=== PATIENT | male | born 1960 | race Caucasian/White ===

== ENCOUNTER 2020-05-19 06:24 | Observation (INO) | payer OTHER ==
[2020-05-19] VITALS (10 sets, daily range): BP systolic 116–147; BP diastolic 69–88
[~2020-05-19] VITALS: Ht 188 cm; Wt 107.0 kg
[2020-05-19] MEDS ORDERED: COREG25 MG PO (07:42)
[2020-05-19 07:43] LABS: HEMOGLOBIN 12.6 gm/dL (14.0-18.0); MCH 26.7 pg (26.0-34.0); MCHC 33.1 g/dL (28.0-37.0); MCV 80.5 fL (80.0-100.0); RBC 4.72 mil/uL (4.50-6.00); RDW 14.8 % (10.5-14.5)
[2020-05-19] MEDS ORDERED: CARVEDILOL25 MG PO (07:43)
[2020-05-19] MEDS ORDERED: HYDROCHLOROTHIA25 M1 PO (07:43)
[2020-05-19] MEDS ORDERED: ELIQUIS5 MG PO (07:43)
[2020-05-19] MEDS ORDERED: LEVOTHYROXINE25 MC1 PO (07:44)
[2020-05-19] MEDS ORDERED: METFORMIN HCL500 M3 PO (07:46)
[2020-05-19] MEDS ORDERED: COZAAR 25 MG TA25 M2 PO (07:46)
[2020-05-19 07:47] LABS: CREATININE 1.5 mg/dL (0.7-1.3); POTASSIUM 3.5 mmol/L (3.5-5.1)
[2020-05-19] MEDS ORDERED: NYSTATIN-TRIAMC15 GM TOP (07:47)
[2020-05-19] MEDS ORDERED: PACERONE200 MG PO (07:47)
[2020-05-19] MEDS ORDERED: SILDENAFIL20 MG PO (07:48)
[2020-05-19] MEDS ORDERED: CRESTOR40 MG PO (07:48)
[2020-05-19] MEDS ORDERED: CLONAZEPAM 0.50.5 M1 PO (07:49)
[2020-05-19] MEDS ORDERED: ASA81BEC PO (07:49)
--- NOTE | 2020-05-19 13:09 | NUR ---
PT RECEIVED FROM [employer] OPPORTUNITY OFFICER, PTS VSS. PTS RIGHT GROIN SITE CLEAN DRY AND INTACT WITH NO HEMATOMA PRESENT. ADMISSION ASSESSMENT PERFORMED CHARTED. WILL CONTINUE TO MONITOR AND FOLLOW POC.
--- NOTE | 2020-05-19 16:30 | NUR ---
PT RESTING WITH AT BEDSIDE. PT VOICES NO CONCERNS AT THIS TIME. VSS. WILL CONTINUE TO MONITOR AND FOLLOW POC. PTS GROIN SITE LOOKS CLEAN DRY AND INTACT.
--- NOTE | 2020-05-19 18:00 | CATHLAB ---
[facility] [place] [address] INVASIVE PROCEDURE REPORT Name: JOSE ANTONIO CHEN Room #: 212-P ADM Gena Foster#: [id number] Admission: 05/19/20 Attend Phys: Santosh Gallegos MD, Discharge: Date of : 60 Report #: [id number] THIS REPORT FOR: cc: NO FAMILY PHYSICIAN or PCP NO FAMILY PHYSICIAN or PCP Santosh Gallegos MD [facility] ~ APPROVED REPORT Study performed: 05/19/2020 09:02:08 Patient Details Patient Status: Out-Patient Room #: The patient is a 59 year-old male Event Personnel Santosh Gallegos Business Services Sales Representative, Rani Belcher RTR Monitor, Sarwat Mtz RTR ScrubAdeline Kirsten RN missile facilities repairer Performed Art Access - R femoral artery* Left Heart Cath Coronaries, Bypass Grafts [id number] LHCCORCABG ROBBIN Place w/wo Plasty Single OM [id number] Hemostasis w/ Mynx 67898 Initial Mod Sed Same Phys/QHP Gr5y [id number] Mod Sed Same Phys/QHP Ea 355807 Procedure Narrative The Right Groin^ was infiltrated with 1% Lidocaine subcutaneous anesthesia. A PINNACLE 6FR Sheath #[id number] sheath was inserted into the RFA^. Coronary angiography was performed using coronary diagnostic catheters. The right coronary system was accessed and visualized with a JR4 catheter. The left coronary system was accessed and visualized with a JL4 catheter. The left ventricle was accessed and visualized with a PIGTAIL catheter. Left ventriculogram was performed in 30 degree projection. Closure device was deployed with a Fr 6F MynxGrip. There was no hematoma. Intraoperative Conscious Sedation Sedation start time: 9:46 Case end Time: 10:44 Fluoro Time: 10.80 minutes Dose: DAP 91111.40 cGycm2 2978 mGy Contrast Type and Amount: Visipaque 175 ml Hemodynamics [facility] [place] [address] INVASIVE PROCEDURE REPORT Name: JOSE ANTONIO CHEN Room #: 212-P [facility] M.R.#: [id number] Admission: 05/19/20 Attend Phys: Santosh Gallegos, Discharge: Date of : 60 Report #: [id number] The aortic pressure is 172/45 mmHg with a mean of 113 mmHg. The left ventricular pressure is 159/5 mmHg with a mean of mmHg. The left ventricular end diastolic pressure is 11 mmHg. PCI Technique Lesion Percutaneous coronary intervention was performed on the OM2. A EBU 3.75 Guide Catheter was used to engage the ostium. A Straight Luge Interventional Guidewire was used to cross the lesion. BALLOON DILATION A Balloon catheter 2.25mm x 12mm Sprinter OTW was inserted and inflated up to 3.00atm for 14seconds. Additional Inflation: 8.00atm for 28seconds. Additional Inflation: 16.00atm for 38seconds. STENT DEPLOYMENT A drug-eluting stent 2.5mm x 12mm Resolute [place] OTW was inserted and inflated up to 16.00atm for 28seconds. POST STENT DEPLOYMENT BALLOON DILATION A Balloon catheter 2.50mm x 12mm NC TREK OTW was inserted and inflated up to 22.00atm for 33seconds. Conclusion 1. Successful PTCA stent of the mid circumflex lesion previously stented with a high-grade lesion in between prior stents placement of a 2.5 x 12 resolute [place] postdilated with noncompliant balloon 2.7 mm ALENA grade III flow 0% residual #2 left main long free of disease giving rise to LAD and circumflex. #3 the LAD is an eccentric proximal lesion of 70 to 80% competitively filling the mid distal LAD mildly diseased with a KAMARA graft. #4 KAMARA to LAD is intact competitively filling the distal LAD no occlusive disease #5 SVG to OM is occluded. #6 [place] right coronary artery occluded proximally #7 SVG to PDA is intact mild irregularity #8 normal left jugular size systolic function mildly reduced EF 50% range Recommendations and plan: Continue aggressive risk factor modification. Chest pain EKG changes resolved. Dual antiplatelet therapy initiated. To CCU to follow post coronary stent protocol. <ELECTRONICALLY SIGNED> By: Santosh Gallegos MD, FACC 05/19/20 1800 99 99 Santosh Gallegos MD, FACC /INF
[2020-05-20 04:25] VITALS: BP 125/70
[2020-05-20 04:57] LABS: HEMATOCRIT 35.8 % (42.0-52.0); HEMOGLOBIN 11.9 gm/dL (14.0-18.0); MCH 26.8 pg (26.0-34.0); MCHC 33.2 g/dL (28.0-37.0); MCV 80.7 fL (80.0-100.0); RBC 4.44 mil/uL (4.50-6.00); RDW 15.1 % (10.5-14.5); WBC 9.3 thou/uL (4.0-11.0)
[2020-05-20 05:04] LABS: ALBUMIN 3.4 g/dL (3.4-5.0); ANION GAP 11 mmol/L (7-16); BUN 19 mg/dL (7-18); CALCIUM 8.3 mg/dL (8.5-10.1); CHLORIDE 101 mmol/L (98-107); CHOLESTEROL 135 mg/dL (<200); CO2 24 mmol/L (21-32); CREATININE 1.3 mg/dL (0.7-1.3); GLUCOSE 186 mg/dL (74-106); HDL CHOLESTEROL 43 mg/dL (>40); LDL CHOLESTEROL 61 mg/dL (<100); SGOT 27 U/L (15-37); SGPT 44 U/L (30-65); SODIUM 136 mmol/L (136-145); TC:HDL 3.1 Ratio (Not establshd); TOTAL BILIRUBIN 0.4 mg/dL (0.2-1.0); TOTAL PROTEIN 6.8 g/dL (6.4-8.2); TRIGLYCERIDE 157 mg/dL (<150); TROPONIN-I 0.06 ng/mL (<0.06); VLDL 31 mg/dL (<40)
[2020-05-20 05:27] LABS: SERUM ASSESSMENT Clear
--- NOTE | 2020-05-20 07:45 | EKG ---
[address] [place] [address] ELECTROCARDIOGRAM REPORT Name: JOSE ANTONIO CHEN Room #: 212-[facility] M.R.#: [id number] Admission: 05/19/20 Attend Phys: Santosh Gallegos MD, Discharge: Date of : 60 Report #: [id number] [facility] Test Date: 2020-05-20 Test Time: 07:11:40 Pat Name: JOSE ANTONIO CHEN Department: Room: 212 P Gender: M Cost Estimator: NILO : 1960 Requested By: Santosh Gallegos Order Number: [id number] MD: Geoffrey Ferreira Measurements Intervals [place] Rate: 50 P: 12 MT: 223 QRS: -2 QRSD: 175 T: 23 QT: 538 QTc: 491 Interpretive Statements Sinus rhythm Prolonged MT interval Right bundle branch block Probable inferior infarct, age indeterminate No previous ECG available for comparison Electronically Signed On 05-20-2020 7:44:52 CDT by Geoffrey Ferreira [email or web address] <ELECTRONICALLY SIGNED> By: Geoffrey Ferreira MD, [facility] 05/20/20 0744 0 0 Geoffrey Ferreira MD, [facility] /EPI
[2020-05-20 08:00] VITALS: BP 132/66
[2020-05-20] MEDS ORDERED: ELIQUIS5 MG PO (08:12)
[2020-05-20] MEDS ORDERED: CLOPIDOGREL75 MG PO (08:12)
[2020-05-20] MEDS ORDERED: ASA81BEC PO (08:12)
[2020-05-20 09:03] VITALS: BP 125/70
== END 2020-05-20 10:20 | disposition home or self-care (01) ==
LOC: CATH 06:24 → 2N 13:02
PROVIDERS: ADMIT Internal Medicine Cardiovascular Disease; ATTEND Internal Medicine Cardiovascular Disease
DX: I25.10 Atherosclerotic heart disease of native coronary artery without angina pectoris (principal); I10 Essential (primary) hypertension; E11.9 Type 2 diabetes mellitus without complications; E78.5 Hyperlipidemia, unspecified; I65.29 Occlusion and stenosis of unspecified carotid artery; I48.0 Paroxysmal atrial fibrillation; R42 Dizziness and giddiness; F41.9 Anxiety disorder, unspecified; F17.220 Nicotine dependence, chewing tobacco, uncomplicated; Z79.82 Long term (current) use of aspirin; Z79.899 Other long term (current) drug therapy; Z86.73 Personal history of transient ischemic attack (TIA), and cerebral infarction without residual deficits

== ENCOUNTER → 2020-06-24 | Outpatient (CLI) | payer OTHER ==
[~2020-06-24] MED LIST: ASA81BEC PO; CARVEDILOL25 MG PO; CLONAZEPAM 0.50.5 M1 PO; CLOPIDOGREL75 MG PO; COREG25 MG PO; COZAAR 25 MG TA25 M2 PO; CRESTOR40 MG PO; ELIQUIS5 MG PO; HYDROCHLOROTHIA25 M1 PO; LEVOTHYROXINE25 MC1 PO; METFORMIN HCL500 M3 PO; NYSTATIN-TRIAMC15 GM TOP; PACERONE200 MG PO; SILDENAFIL20 MG PO
== END ==
LOC: MRI 13:55
PROVIDERS: ATTEND Psychiatry & Neurology Neuromuscular Medicine
DX: R42 Dizziness and giddiness (principal)

== ENCOUNTER → 2020-07-21 | Outpatient (CLI) | payer OTHER | LOC: MRI 12:23 | PROVIDERS: ATTEND Psychiatry & Neurology Neuromuscular Medicine | DX: R42 Dizziness and giddiness (principal) ==